=== PATIENT | female | born 1980 | race Caucasian/White ===

== ENCOUNTER → 2017-05-27 | Outpatient (CLI) | payer BC ==
[2017-05-27 17:58] LABS: URINE APPEARANCE CLOUDY (CLEAR); URINE BILIRUBIN NEG (NEG); URINE COLOR YELLOW; URINE NITRITE NEG (NEG); URINE PH 8.5 (4.5-7.5); URINE SPECIFIC GRAVITY 1.017 (1.000-1.030); UROBILINOGEN NEG (NEG)
[2017-05-27 18:00] LABS: MANUAL MICROSCOPIC REQUIRED? NO; REVIEW REQ? NO
== END | disposition home or self-care (01) ==
LOC: C.LABSPEC 16:21
PROVIDERS: ATTEND Obstetrics & Gynecology
DX: O09.811 Supervision of pregnancy resulting from assisted reproductive technology, first trimester (principal); Z3A.00 Weeks of gestation of pregnancy not specified

== ENCOUNTER → 2017-06-03 | Outpatient (CLI) | payer BC ==
[2017-06-03 14:43] LABS: BASO % 0.3 %; BASO ABS # 0.02 K/uL (0-0.2); COMPLETE YES; EOS % 3.3 %; IG% 0.1 %; LYMPH % 15.7 %; LYMPH ABS # 1.05 K/uL (1.2-3.4); MEAN CELL VOLUME 92.7 fL (80-100); MEAN CORPUSCULAR HEMOGLOBIN 31.7 pg (25-34); MEAN CORPUSCULAR HGB CONC 34.2 g/dl (32-36); MEAN PLATELET VOLUME 10.8 fL (7.4-10.4); MONO % 5.5 %; NEUT % 75.1 %; PLATELET COUNT 214 K/uL (130-400); WHITE BLOOD COUNT 6.68 K/uL (4.8-10.8)
[2017-06-06 11:51] LABS: CHLAMYDIA TRACH RNA*** NOT DETECTED (NOT DETECTED); GC (NEIS GONORRHOEAE)RNA** NOT DETECTED (NOT DETECTED)
== END | disposition home or self-care (01) ==
LOC: C.LAB1850 12:33
PROVIDERS: ATTEND Obstetrics & Gynecology
DX: O09.811 Supervision of pregnancy resulting from assisted reproductive technology, first trimester (principal)

== ENCOUNTER → 2017-07-15 | Outpatient (CLI) | payer BC ==
[2017-07-15 13:44] LABS: GTGD 50 Grams
== END | disposition home or self-care (01) ==
LOC: C.LAB1850 11:42
PROVIDERS: ATTEND Obstetrics & Gynecology
DX: O09.511 Supervision of elderly primigravida, first trimester (principal)

== ENCOUNTER → 2017-10-07 | Outpatient (CLI) | payer BC ==
[2017-10-07 17:16] LABS: HEMATOCRIT 34.1 % (37-47)
[2017-10-07 18:06] LABS: URINE APPEARANCE CLEAR (CLEAR); URINE BILIRUBIN NEG (NEG); URINE COLOR YELLOW; URINE NITRITE NEG (NEG); URINE SPECIFIC GRAVITY 1.013 (1.000-1.030); UROBILINOGEN NEG (NEG)
[2017-10-07 18:15] LABS: GTGD 50 Grams
[2017-10-07 18:17] LABS: MANUAL MICROSCOPIC REQUIRED? NO; REVIEW REQ? NO
== END | disposition home or self-care (01) ==
LOC: C.LAB1850 16:09
PROVIDERS: ATTEND Obstetrics & Gynecology
DX: O09.812 Supervision of pregnancy resulting from assisted reproductive technology, second trimester (principal)

== ENCOUNTER → 2017-10-15 | Outpatient (CLI) | payer BC | END | disposition home or self-care (01) | LOC: C.LAB 07:31 | PROVIDERS: ATTEND Obstetrics & Gynecology | DX: O28.1 Abnormal biochemical finding on antenatal screening of mother (principal) ==

== ENCOUNTER → 2017-12-06 | Outpatient (CLI) | payer BC, OTHER | END | disposition home or self-care (01) | LOC: C.LABSPEC 16:00 | PROVIDERS: ATTEND Obstetrics & Gynecology | DX: O09.813 Supervision of pregnancy resulting from assisted reproductive technology, third trimester (principal) ==

== ENCOUNTER 2017-12-26 05:37 | Inpatient (IN) | payer BC ==
--- NOTE | 2017-12-16 14:56 | HISTORY & PHYSICAL EXAMINATION ---
DATE OF ADMISSION: 12/26/2017 Surgery is planned for 12/26/2017. CHIEF COMPLAINT: Desires primary section. HISTORY OF PRESENT ILLNESS: Valerie is a 37-year-old white female 4, para 0-0-3-0, who presents at 39-2/7 weeks for a planned elective delivery. This is a resulting from in vitro fertilization. At her 22-week echo, there was a concern about a VSD and mild right ventricular hypoplasia; however, at a repeat echo 1 month later, there were no obvious abnormalities and a was recommended on the baby post-delivery. The patient's has been uncomplicated other than that, anatomy ultrasound also showed a right choroid plexus cyst. She had a negative panorama screen. She had reactive nonstress test and normal fluid levels seen throughout the late part of . 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 He is a carrier for steroid resistant nephrotic syndrome and 21-hydroxylase deficient congenital adrenal hyperplasia, but she is not. 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 The patient desires a primary section because she would like to avoid any neurologic injury to the baby that might be associated with trauma. She had a long conversation with Dr. Machado regarding this discussing the pros and cons of primary section and an attempt at vaginal delivery. It was explained to the patient that neurological injuries are often events and not associated with " trauma." Nonetheless, the patient desires a primary section. Growth scans have been good throughout. Also of note, the father of the baby is a neurologist. Her sister had a baby with a history of CT as a result of a shoulder dystocia. PAST OBSTETRIC AND GYNECOLOGIC HISTORY: The patient has a history of 3 spontaneous miscarriages, 1 in 2008 and 2 in 2011. This is an IVF baby. She has regular menstrual cycles every 28-30 days and menarche was at age 11. She has no history of abnormal Pap smears, no other significant gynecologic history. The patient has had a polyp removed from her uterus. ALLERGIES: PENICILLINS AND VICODIN. Her penicillin allergy is rash and it is somewhat questionable history of that. Vicodin causes GI upset with significant VOMITING. MEDICATIONS: vitamin. PAST MEDICAL HISTORY: The patient notes a history of retinal migraines and a chickenpox. She denies thyroid disease, asthma, heart disease, heart murmur, diabetes, kidney or liver problems. SOCIAL HISTORY: The patient denies tobacco, alcohol or drug use. She lives with her spouse. PHYSICAL EXAMINATION: GENERAL: This is a well-developed, well-nourished white female in no acute distress. VITAL SIGNS: Blood pressure 100/66, weight 160 pounds. NECK: Supple without thyromegaly or lymphadenopathy. CHEST: Clear to auscultation bilaterally. CARDIOVASCULAR: Regular rate and rhythm without murmurs, gallops or rubs. BACK: Without costovertebral angle tenderness. ABDOMEN: Gravid, soft and nontender. EXTREMITIES: Show some trace edema, but are otherwise benign. LABORATORY DATA: O positive, antibody negative, rubella immune, RPR nonreactive, hepatitis B negative, HIV negative, chlamydia and gonorrhea cultures negative, cystic fibrosis screening declined because she had already had it. A 16-week glucose test normal, 28-week glucose test 141 with a normal 2-hour glucose tolerance test. She is group B strep positive. ASSESSMENT AND PLAN: Valerie is a 37-year-old female, 4, para 0-0-3-0, with an estimated date of confinement of 12/31/2017 who presents at 39 and 2/7 weeks for a primary elective delivery. The is complicated by an in vitro fertilization that has been growing well and has had normal testing. There was a question of some abnormalities on the echo that on followup proved to be not an issue. Delivery was recommended at [facility] with a followup echo. The risks of the procedure were discussed with the patient including the risks of anesthesia, bleeding requiring transfusion, infection and poor wound healing, damage to surrounding structures including bowel, bladder, vessels, nerves and ureters with need for further surgery, hospitalization or intervention. The other risks of surgery including heart attack, blood clot, stroke or were discussed with the patient. Questions were asked and answered. Consent was signed. Surgery is planned for December 26.
--- NOTE | 2017-12-16 15:11 | PAT Medication Instructions ---
Service Date Dec 16, 2017. Current Home Medication List Multivit/Min/Iron/Fol Ac/Pren ( Vitamin), 1 TAB PO QAM Medication Instructions For Your Scheduled Surgery - Hold the following medications the morning of surgery: Multivit/Min/Iron/Fol Ac/Pren ( Vitamin), 1 TAB PO QAM If you have any questions please call us at [phone] or [phone] or [phone]
[2017-12-16 15:41] LABS: BASO % 0.3 %; BASO ABS # 0.02 K/uL (0-0.2); EOS % 0.4 %; EOS ABS # 0.03 K/uL (0-0.5); IG# 0.02 K/uL (0.00-0.02); LYMPH % 15.2 %; LYMPH ABS # 1.15 K/uL (1.2-3.4); MEAN CELL VOLUME 91.6 fL (80-100); MEAN CORPUSCULAR HEMOGLOBIN 31.4 pg (25-34); MEAN CORPUSCULAR HGB CONC 34.3 g/dl (32-36); MONO ABS # 0.53 K/uL (0.11-0.59); NEUT % 76.8 %; NEUT ABS # 5.82 K/uL (1.4-6.5); PLATELET COUNT 174 K/uL (130-400); RED CELL DISTRIBUTION WIDTH CV 12.7 % (11.5-14.5); RED CELL DISTRIBUTION WIDTH SD 42.6 fL (36.4-46.3); WHITE BLOOD COUNT 7.57 K/uL (4.8-10.8)
[~2017-12-26] VITALS: Ht 160 cm; Wt 76.4 kg
[2017-12-26] VITALS (16 sets, daily range): BP systolic 99–107; BP diastolic 56–63; PULSE 56–76; TEMP 36.6–37.1; O2SAT 96–99; Ht 160 cm; Wt 76.4 kg
[~2017-12-26 05:37] MED LIST: LACTATED RINGER'S 1000ML 1,000 ML IV SCH; PRENTAB26 PO
[2017-12-26] MEDS ORDERED: CITRIC ACID/SODIUM CITRATE 15 ML UDC PO SCH (06:00)
[2017-12-26] MEDS ORDERED: CEFAZOLIN IV 2,000 MG in SYRINGE 0 ML IV SCH (06:00)
[2017-12-26] MEDS ORDERED: LACTATED RINGER'S 1000ML 1,000 ML IV SCH ×2 (06:06→08:41)
[2017-12-26] MEDS ORDERED: CITRIC ACID/SODIUM CITRATE 15 ML UDC PO ONE (06:15)
[2017-12-26 07:01] LABS: BASO % 0.3 %; BASO ABS # 0.02 K/uL (0-0.2); EOS ABS # 0.07 K/uL (0-0.5); HEMATOCRIT 33.2 % (37-47); HEMOGLOBIN 11.8 g/dL (12.0-16.0); IG# 0.02 K/uL (0.00-0.02); LYMPH % 20.8 %; LYMPH ABS # 1.53 K/uL (1.2-3.4); MEAN CELL VOLUME 90.7 fL (80-100); MEAN CORPUSCULAR HEMOGLOBIN 32.2 pg (25-34); MEAN CORPUSCULAR HGB CONC 35.5 g/dl (32-36); MEAN PLATELET VOLUME 10.9 fL (7.4-10.4); MONO % 7.6 %; MONO ABS # 0.56 K/uL (0.11-0.59); NEUT ABS # 5.15 K/uL (1.4-6.5); PLATELET COUNT 172 K/uL (130-400); RED CELL DISTRIBUTION WIDTH CV 12.7 % (11.5-14.5); WHITE BLOOD COUNT 7.35 K/uL (4.8-10.8)
--- NOTE | 2017-12-26 07:16 | History & Physical Bridge Note ---
H&P Re-Evaluation Bridge Note: I have examined the patient, reviewed the History & Physical and in the interval since the performance of the History & Physical I have noted the following changes of clinical significance: No changes noted
[2017-12-26] MEDS ORDERED: FENTANYL CITRATE INJ 50 MCG/1 ML 2 ML VIAL ONE (07:32)
[2017-12-26] MEDS ORDERED: OXYTOCIN INJ 10 UNITS/ML VIAL ONE ×2 (07:32→10:26)
[2017-12-26] MEDS ORDERED: MoRPHine SULFATE PF 1 MG/ML 10 ML AMP/VIAL ONE (07:32)
[2017-12-26] MEDS ORDERED: ONDANSETRON INJ 2 MG/ML 2 ML VIAL ONE (07:52)
[2017-12-26] MEDS ORDERED: PHENYLEPHRINE 100MCG/ML 5ML SYR ONE (07:52)
[2017-12-26] MEDS ORDERED: CARBOPROST TROMETHAMINE 250 MCG/ML AMP ONE (08:13)
[2017-12-26] MEDS ORDERED: LACTATED RINGER'S 1000ML 500 ML IV PRN (08:21)
[2017-12-26] MEDS ORDERED: SODIUM CHLORIDE 0.9% 1000ML 1,000 ML IV PRN (08:21)
[2017-12-26] MEDS ORDERED: NALOXONE HCL INJ 1 MG in SODIUM CHLORIDE 0.9% 1000ML 1,000 ML IV PRN (08:21)
[2017-12-26] MEDS ORDERED: NALOXONE HCL INJ 0.08 MG in SYRINGE 1.8 ML IV PRN (08:21)
[2017-12-26] MEDS ORDERED: DEXAMETHASONE SOD INJ 4 MG/ML VIAL ONE (08:23)
[2017-12-26] MEDS ORDERED: EpHEDrine SULFATE INJ 50 MG/ML AMP IV PRN (08:30)
[2017-12-26] MEDS ORDERED: MoRPHine SULFATE 2 MG/ML CARP IV PRN (08:30)
[2017-12-26] MEDS ORDERED: NALBUPHINE HCL INJ 10 MG/ML AMP IV PRN (08:30)
[2017-12-26] MEDS ORDERED: CARBOPROST TROMETHAMINE 250 MCG/ML AMP IM ONE (08:30)
[2017-12-26] MEDS ORDERED: DiphenhydrAMINE HCL 50 MG/ML VIAL IV PRN (08:30)
[2017-12-26] MEDS ORDERED: KETOROLAC TROMETHAMINE 30 MG/ML VIAL IV. PRN (08:30)
[2017-12-26] MEDS ORDERED: NO NARCOTICS OR SEDATIVES SCH (08:30)
[2017-12-26] MEDS ORDERED: NALOXONE HCL 0.4 MG/1 ML VIAL/CARP IV PRN (08:30)
[2017-12-26] MEDS ORDERED: MoRPHine SULFATE PF 1 MG/ML 10 ML AMP/VIAL EPI PRN (08:30)
[2017-12-26] MEDS ORDERED: ONDANSETRON INJ 2 MG/ML 2 ML VIAL IV PRN (08:30)
[2017-12-26] MEDS ORDERED: MEPERIDINE HCL 25 MG/ML CARP IV PRN (08:30)
[2017-12-26] MEDS ORDERED: LANOLIN OINT EXT PRN (08:45)
[2017-12-26] MEDS ORDERED: DIPHTHERIA/TETANUS/PERTUSSIS 0.5 ML SYR/VIAL IM. ONE (08:45)
--- NOTE | 2017-12-26 08:52 | [facility] Post Operative Brief Note ---
Immediate Operative Summary Operative Date Dec 26, 2017. Pre-Operative Diagnosis IUP AT 39 WEEKS; DESIRE FOR PRIMARY CESEARAN SECTION Post-Operative Diagnosis SAME WITH DELIVERY OF LIVE FEMALE CHILD Procedure(s) Performed Primary LOW TRANSVERSE SECTION Surgeon DR TRINIDAD Manager College Surgeon(s) DR WATKINS, Dr. Covington Estimated Blood Loss 700 CC Findings See Below nl utx, tubes, ovs, viable female, apgars 8/9. Fluids (cc crystalloids) 700cc Specimens PLACENTA-HOLD CORD BLOOD Drains None Anesthesia Type Spinal Complication(s) none Disposition Accompanied Pt To Recover: yes Disposition: L&D
[2017-12-26] MEDS ORDERED: OXYTOCIN INJ 20 UNITS in LACTATED RINGER'S 1000ML 1,000 ML IV SCH (09:00)
--- NOTE | 2017-12-26 09:14 | Anesthesiology Progress Note ---
Anesthesia Post Op Note Date & Time Dec 26, 2017 at 09:14 Notes Mental Status: alert / awake / arousable, participated in evaluation Pt Amnestic to Procedure: Yes Nausea / Vomiting: adequately controlled Pain: adequately controlled Airway Patency, RR, SpO2: stable & adequate BP & HR: stable & adequate Hydration State: stable & adequate Neuraxial Anesthesia: was administered, sensory block is resolving Anesthetic Complications: no major complications apparent
--- NOTE | 2017-12-26 09:54 | OPERATIVE REPORT ---
DATE OF OPERATION: 12/26/2017 PREOPERATIVE DIAGNOSES: 1. Intrauterine at 39+ weeks. 2. Desires elective primary section. POSTOPERATIVE DIAGNOSES: Same. PROCEDURE: Primary low transverse section. SURGEON: Dr. Huntley. FIELD ADMINISTRATIVE ASSISTANT: Dr. Sevilla and Dr. Fay Covington, PGY-1. ESTIMATED BLOOD LOSS: 700 mL FLUIDS: 2300 mL URINE OUTPUT: 330 mL of clear yellow urine drained from the bladder at the end of the procedure. INDICATIONS: Valerie is a 4, para 0-0-3-0, with an IVF at 39 weeks, who desires primary elective section. FINDINGS: Normal uterus, tubes and ovaries were noted bilaterally. She was delivered of a viable female from cephalic presentation, Apgars 8 and 9, weight pending at the time of this dictation. COMPLICATIONS: None. DRAINS: Hatch. DISPOSITION: To recovery room in stable condition. PROCEDURE IN DETAIL: The patient was taken to the operating room where she was identified verbally and by bracelet. She was seated on the operating table where spinal anesthetic was placed. She was then placed in dorsal lithotomy position with a leftward tilt and a Hatch catheter was placed sterilely. The patient was then placed in the supine position. She was prepped and draped in normal sterile fashion. Her spinal was tested and found to be adequate. A timeout was held identifying correct patient, procedure, positioning, and preoperative antibiotic. A Pfannenstiel skin incision was made with a knife and taken down to the underlying layer of fascia with the knife and Bovie electrocautery. The fascia was incised in midline with Bovie electrocautery, taken out laterally with scissors. The superior edge of the fascial incision was grasped, elevating the underlying layer, and rectus muscle was taken off bluntly and with scissors. In a similar fashion, the inferior edge of the fascial incision was grasped, elevating underlying layer of fascia, was taken off bluntly and with scissors. The muscles were bluntly and sharply in the midline. The peritoneum was entered bluntly. The bladder blade was placed. The vesicouterine peritoneum was grasped, entered with scissors, taken laterally, and the bladder blade was created digitally. The hysterotomy incision was scored with a knife. It was opened with the bitumen plant operator's hands. Amniotomy was performed for clear fluid. The bitumen plant operator's hand was placed in the hysterotomy incision and had difficulty delivering the head, therefore, a vacuum was called for. We still had difficulty delivering the head, so the hysterotomy incision was opened further using bandage scissors. The vacuum was again applied to head and the head was delivered through the incision. The nose and mouth were bulb suctioned. There was no nuchal cord. The rest of the was then delivered without difficulty. The nose and mouth were again bulb suctioned. The cord was clamped and cut. The was handed off to waiting pediatricians for drying and attention. Cord blood and segment were obtained. Placenta was manually extracted. The uterus was exteriorized and cleared of all clot and debris with moistened laparotomy sponges. The hysterotomy incision was repaired in 2 layers, the first in a running locked layer, the second in an imbricating layer. The posterior cul-de-sac was then irrigated and cleared of all clot and debris. The hysterotomy incision was again inspected and found to be hemostatic. The uterus was re-interiorized. Bleeding edges were attended to with Bovie electrocautery until hemostasis was noted to be intact. The rectus muscles were reapproximated with several interrupted sutures of 0 Vicryl. The fascia was repaired with 0 Vicryl starting at the edges and meeting in the midline. The subcuticular tissue was irrigated with warm normal saline and the skin was then closed with subcuticular stitch of 4-0 Vicryl. All sponge, lap, needle counts were correct x2. The patient tolerated the procedure well and was taken to the recovery room in stable condition. I attest to the content of the Intraoperative Record and any orders documented therein. Any exception s are noted below.
[2017-12-26] MEDS: SIMETHICONE 80 MG CHEW PO SCH ×3 (12:00→20:37)
--- NOTE | 2017-12-26 20:19 | Discharge Instructions ---
Discharge Instructions Date of Service Dec 26, 2017. Admission Reason for Admission: Delivery By Elective Section Discharge Discharge Diagnosis / Problem: S/P Elective Section Discharge Goals Goal(s): Routine recovery after Medications Continue Dispensed Medications: lansinoh Activity Recommendations Activity Limitations: per Instructions/Follow-up section . Instructions / Follow-Up Instructions / Follow-Up ACTIVITY RECOMMENDATIONS: * Gradual return to full activity over the next 2-3 weeks. * No lifting - nothing heavier than baby over the next 2-3 weeks. * Do not engage in vigorous exercise, sexual activity or sports until cleared by your physician. * Do not drive or operate any motorized equipment until cleared by your physician. * You may shower/bathe daily. MEDICATIONS: For discomfort or pain, you may use Acetaminophen (Tylenol), Ibuprofen (Advil), or Naproxen (Aleve) following the package directions. For constipation you may use Colace following the package directions. BREAST CARE: If you are not breast feeding: * Wear a supportive bra 24 hours a day for one to two weeks. * Avoid stimulating your breasts and nipples as much as possible during the first few weeks after delivery. * When taking a shower, have the warm water hit your back, not breasts. * When your breasts feel full, apply ice packs. Usually three to four times a day helps ease the discomfort. * Take a mild pain medication (Tylenol / Motrin) when you are uncomfortable. If breast feeding: * Use breast milk to lubricate nipples. Lansinoh cream may be used for sore nipples. You do not need to remove cream prior to breast feeding. If using a different brand of cream, check the label for directions regarding removal of cream prior to nursing. * Wear a supportive bra. * If having problems with breasts or breast feeding, call a marketing operations consultant or your health care provider. SPECIAL CARE INSTRUCTIONS: When you are discharged from the hospital, it is important for you to follow the instructions listed below: * During the first week at home, you should be able to care for yourself and your baby. In addition, the usual light household activities are encouraged. * Limit your activities to the way you feel. Do not try to clean the house or move furniture. Be sensible. * If you actively engage in sports and have done so up until the time of your delivery, you may resume these activities as soon as you feel able. This may take up to one month or even longer. Use good judgment. * Continue to take your vitamins for at least six weeks after the of your baby. * Your diet need not be limited unless you were on a special diet before your delivery. Breast-feeding mothers need around 2500 calories per day and at least 64-80 ounces of fluid per day (8 to 10 glasses). * You should eat foods from the four major food groups. Crash diets or fad diets are to be avoided. Eating lean meats, fresh fruits and vegetables, low-fat dairy products, high fiber foods and a regular exercise program, will help you get back to your pre- weight without putting your health at risk. * Constipation is sometimes a problem after delivery. Take a mild laxative as needed. If breast feeding, Milk of Magnesia is acceptable to use. You may use a suppository or Fleets enema. * A daily shower or tub bath is suggested. Wash incision daily with warm soapy water and pat dry. It doesn't need to be covered unless drainage is present. * A bloody vaginal discharge will usually continue until around four weeks . A small amount of bleeding may continue for as long as six weeks. Vaginal discharge changes from the bright red bleeding after delivery to pink then brownish and finally yellowish-pink before becoming white and disappearing. * Bleeding may increase with activity. Your first period may come in 4-8 weeks. If you are breast feeding, your period may be delayed even longer. * [place] (sex) can begin whenever both you and your partner feel comfortable and do not have any form of genital infection. It is recommended that you wait at least six weeks for internal and external healing to occur. If you have questions, please talk to your health care practitioner. A condom should be used to prevent infection and . * Foreplay, gentle intercourse and lubrication is very important the first several times to prevent pain. A water-based lubricant such as K-Y jelly or Astroglide may be used. * If you have RH negative blood and your baby is RH positive, you will receive RHOGAM by injection prior to discharge. The nurse will give you a card to keep with you that has the date and place that you received RHOGAM after delivery. * During your care, you had a Rubella screen done to check for the presence of rubella antibodies in your blood. If your test was negative, you will receive a Rubella vaccine prior to discharge. This vaccine may cause a fever, soreness at the injection site and flu-like symptoms. If these symptoms persist, notify your health care practitioner. is not advised for one month after a Rubella vaccine. * Verbalizes understanding of car seat law as reviewed with patient nursing. * Car Seat hand-out given and reviewed with patient by nursing. * Shaken baby information reviewed with patient by nursing. Call you doctor if: * Heavy bleeding (saturating several pads an hour) or passing clots the size of your fist. * A fever >101 degrees F (38.3 degrees C) on two occasions four hours apart and /or chills. * Unusual pain in the pelvic or vaginal areas. * Call the doctor for any increased redness, drainage or swelling around the incision and any pain unrelieved by prescribed pain medication. * "Baby Blues" lasting longer than two weeks. If you have any questions or concerns, call your health care practitioner at . FOLLOW UP VISIT: * Please call the office at to schedule a 6 week examination. It is important you keep this appointment. It is important for you to make arrangements for either yearly or twice yearly check-ups thereafter. Current Hospital Diet Patient's current hospital diet: Clear Liquid Diet Discharge Diet Recommended Diet: Regular OB Diet Procedures Procedures Performed: Primary LOW TRANSVERSE SECTION Pending Studies Studies pending at discharge: no Medical Emergencies . Who to Call and When: Medical Emergencies: If at any time you feel your situation is an emergency, please call [phone] immediately. . Non-Emergent Contact Non-Emergency issues call your: Control Panel Assembler . . "Provider Documentation" section prepared by Fay Covington. .
[2017-12-26] MEDS: DOCUSATE SODIUM 100 MG CAP PO SCH (20:37)
[2017-12-27] VITALS: O2SAT 97
[2017-12-27 01:00] VITALS: O2SAT 96
[2017-12-27] MEDS ORDERED: DiphenhydrAMINE HCL 50 MG/ML VIAL IV PRN (02:00)
[2017-12-27] MEDS ORDERED: DC INTRASPINAL MORPHINE SCH (02:00)
[2017-12-27] MEDS ORDERED: OXYCODONE/ACETAMINOPHEN 5-325 TAB PO PRN ×2 (02:00)
[2017-12-27] MEDS ORDERED: KETOROLAC TROMETHAMINE 30 MG/ML VIAL IV. PRN (02:00)
[2017-12-27] MEDS ORDERED: MEPERIDINE HCL 50 MG/ML CARP IV PRN ×2 (02:00)
[2017-12-27 04:35] VITALS: BP 94/51; PULSE 71; TEMP 37; O2SAT 96
[2017-12-27 07:28] LABS: BASO % 0.2 %; BASO ABS # 0.02 K/uL (0-0.2); EOS % 0.1 %; EOS ABS # 0.01 K/uL (0-0.5); HEMATOCRIT 26.8 % (37-47); HEMOGLOBIN 9.2 g/dL (12.0-16.0); IG# 0.03 K/uL (0.00-0.02); LYMPH % 16.2 %; LYMPH ABS # 1.55 K/uL (1.2-3.4); MEAN CELL VOLUME 91.5 fL (80-100); MEAN CORPUSCULAR HEMOGLOBIN 31.4 pg (25-34); MEAN CORPUSCULAR HGB CONC 34.3 g/dl (32-36); MEAN PLATELET VOLUME 10.7 fL (7.4-10.4); MONO % 6.1 %; MONO ABS # 0.58 K/uL (0.11-0.59); NEUT % 77.1 %; NEUT ABS # 7.37 K/uL (1.4-6.5); PLATELET COUNT 138 K/uL (130-400); RED CELL DISTRIBUTION WIDTH CV 12.7 % (11.5-14.5); RED CELL DISTRIBUTION WIDTH SD 42.4 fL (36.4-46.3); WHITE BLOOD COUNT 9.56 K/uL (4.8-10.8)
--- NOTE | 2017-12-27 08:08 | Progress Note ---
Subjective Dec 27, 2017. Subjective conversation w/ patient, physical exam, chart review, lab review Ambulation: ambulating normally Voiding: voiding difficulty (Has not yet voided without leslie) Passing Gas: Yes Diet Tolerance: Clear Liquids (advancing to solids this AM) Feeding Type: Breast Feeding Pain: Pt reports dependent pressure pain at incision site, but none at rest Comment: pt seen and examined at bedside today, no acute events overnight reported Review of Systems Constitutional: No fever, No chills, No sweats, No weight loss, No weakness, No fatigue, No problem reported Respiratory: No cough, No sputum, No wheezing, No shortness of breath, No dyspnea on exertion, No dyspnea at rest, No hemoptysis, No problem reported Cardiac: No chest pain, No orthopnea, No PND, No edema, No claudication, No palpitations, No problem reported Breast: No breast lump, No change in shape, No nipple discharge, No breast pain , No problem reported Abdomen: No pain, No nausea, No vomiting, No diarrhea, No constipation, No GI bleeding, No problem reported Female : No dysuria, No urinary frequency, No hematuria, No incontinence, No abnormal vaginal bleeding, No vaginal discharge, No problem reported Denies headache, calf pain Objective Vital Signs Date Time Temp Pulse Resp B/P (MAP) Pulse Ox O2 Delivery O2 Flow Rate FiO2 12/27/17 04:35 37.0 71 16 94/51 (65) 96 Room Air 12/27/17 01:00 16 96 12/27/17 00:00 16 97 12/26/17 23:35 97 Room Air 12/26/17 23:35 36.8 76 16 99/56 (70) 97 Room Air 12/26/17 23:00 16 97 12/26/17 22:00 16 96 12/26/17 21:00 16 98 12/26/17 20:30 37.1 73 16 106/57 (73) 97 Room Air 12/26/17 20:00 16 97 12/26/17 19:00 16 97 12/26/17 18:00 18 98 12/26/17 17:00 18 97 12/26/17 16:05 Room Air 12/26/17 16:05 Room Air 12/26/17 16:00 18 98 12/26/17 15:12 36.7 72 18 107/63 (78) Room Air 12/26/17 15:00 18 99 12/26/17 14:00 18 98 12/26/17 13:00 18 98 12/26/17 12:00 18 98 12/26/17 11:00 18 99 12/26/17 11:00 36.6 56 18 101/56 (71) 99 Room Air 12/26/17 11:00 99 Room Air 12/26/17 11:00 99 Room Air Physical Exam General Appearance: WELL-APPEARING, WD/WN, NO APPARENT DISTRESS Respiratory/Chest: chest non-tender, lungs clear, normal breath sounds, no respiratory distress Cardiovascular: regular rate, rhythm, no edema, no gallop, no murmur Abdomen: normal bowel sounds, non tender, soft Fundus: Firm, Non-Tender, Relation to Umbilicus (1 cm below umbilicus) Incision Description: Clean, Dry & Intact Extremities: normal range of motion, non-tender, normal inspection, no pedal edema, no calf tenderness Laboratory Results Last 24 Hours Test 12/27/17 06:56 White Blood Count 9.56 K/uL Red Blood Count 2.93 M/uL Hemoglobin 9.2 g/dL Hematocrit 26.8 % Mean Corpuscular Volume 91.5 fL Mean Corpuscular Hemoglobin 31.4 pg Mean Corpuscular Hemoglobin Concent 34.3 g/dl Platelet Count 138 K/uL Mean Platelet Volume 10.7 fL Neutrophils (%) (Auto) 77.1 % Lymphocytes (%) (Auto) 16.2 % Monocytes (%) (Auto) 6.1 % Eosinophils (%) (Auto) 0.1 % Basophils (%) (Auto) 0.2 % Neutrophils # (Auto) 7.37 K/uL Lymphocytes # (Auto) 1.55 K/uL Monocytes # (Auto) 0.58 K/uL Eosinophils # (Auto) 0.01 K/uL Basophils # (Auto) 0.02 K/uL RDW Standard Deviation 42.4 fL RDW Coefficient of Variation 12.7 % Immature Granulocyte % (Auto) 0.3 % Immature Granulocyte # (Auto) 0.03 K/uL Medications Current Inpatient Medications Medications (Trade) Dose Ordered Sig/Alyssa Route Start Time Stop Time Status Last Admin Dose Admin Lactated Ringer's 1,000 ml @ 125 mls/hr Q8H IV 12/26/17 08:41 01/25/18 08:40 12/26/17 17:20 125 MLS/HR Ketorolac Tromethamine (Toradol Inj) 30 mg Q6H PRN IV. 12/27/17 02:00 01/01/18 01:59 12/27/17 02:26 30 MG Meperidine HCl (Demerol Inj) 50 mg Q4H PRN IV 12/27/17 02:00 01/10/18 01:59 Meperidine HCl (Demerol Inj) 75 mg Q4H PRN IV 12/27/17 02:00 01/10/18 01:59 Ibuprofen (Motrin Tab) 600 mg Q4H PRN PO 12/26/17 08:45 01/25/18 08:44 Prenat Multivit/ [place]/Iron/Folic Ac ( Vitamin Tab) 1 tab DAILY PO 12/27/17 08:00 01/26/18 07:59 Docusate Sodium (coLACE CAP) 100 mg BID PO 12/26/17 20:00 01/25/18 19:59 12/26/17 20:37 100 MG Lanolin (Lanolin Oint) PRN PRN EXT 12/26/17 08:45 01/25/18 08:44 Simethicone (Mylicon Chew Tab) 80 mg QID PO 12/26/17 09:00 01/25/18 08:59 12/26/17 20:37 80 MG Diphenhydramine HCl (Benadryl Cap) 25 mg QID PRN PO 12/27/17 02:00 01/26/18 01:59 Diphenhydramine HCl (Benadryl Inj) 25 mg QID PRN IV 12/27/17 02:00 01/26/18 01:59 Tramadol HCl (Ultram Tab) 50 mg Q4H PRN PO 12/27/17 07:45 01/26/18 07:44 Assessment and Plan Post-Op Day#: 1 Continue Routine Care: S/P elective CS day 1 AFVSS Hb reviewed blood type O pos, GBS pos, rubella immune pt doing well clinically Encourage ambulation, monitor and control pain with tramadol as requested over percocet, resume regular diet Encourage breast feeding Resident Physician Supervision Note: I interviewed and examined the patient. Discussed with Dr. Covington and agree with findings and plan as documented in the note. Any exceptions or clarifications are listed here: Doing well. routine care. Patient has a sensitivity of n/v to vicodin. She really does not want to take Percocet. Her , an MD, asks if we can prescribe tramadol and we will. encourage ambulation, void. Documented By: Tamiko Huntley Resident Tracking Resident Involvement: Resident Care Provided Care Provided: OB Delivery
[2017-12-27 08:25] VITALS: BP 106/69; PULSE 79; TEMP 36.9; O2SAT 97
[2017-12-27] MEDS: PRENATAL VITAMIN TAB PO SCH (08:29)
[2017-12-27] MEDS: SIMETHICONE 80 MG CHEW PO SCH ×4 (08:29→19:46)
[2017-12-27] MEDS: TRAMADOL HCL 50 MG TAB PO PRN ×4 (08:29→21:14)
[2017-12-27] MEDS: DOCUSATE SODIUM 100 MG CAP PO SCH ×2 (08:29→19:46)
[2017-12-27] MEDS: IBUPROFEN 600 MG TAB PO PRN ×3 (12:36→21:14)
[2017-12-27 15:30] VITALS: BP 105/66; PULSE 74; TEMP 36.7; O2SAT 96
[2017-12-28 00:45] VITALS: BP 100/57; PULSE 74; PULSE 78; TEMP 36.7
[2017-12-28 06:31] LABS: HEMOGLOBIN 9.3 g/dL (12.0-16.0)
--- NOTE | 2017-12-28 07:21 | Progress Note ---
Subjective Dec 28, 2017. Subjective conversation w/ patient, conversation w/ family, physical exam, chart review, lab review Ambulation: ambulating normally Voiding: no voiding problems Passing Gas: Yes (no BM yet) Diet Tolerance: Regular Diet Lochia: Small Feeding Type: Breast Feeding Pain: minimal Comment: pt seen and assessed at bedside; no acute events overnight Review of Systems Constitutional: No fever, No chills, No sweats, No weight loss, No weakness, No fatigue, No problem reported Respiratory: No cough, No sputum, No wheezing, No shortness of breath, No dyspnea on exertion, No dyspnea at rest, No hemoptysis, No problem reported Cardiac: No chest pain, No orthopnea, No PND, No edema, No claudication, No palpitations, No problem reported Breast: No breast lump, No change in shape, No nipple discharge, No breast pain , No problem reported Abdomen: No pain, No nausea, No vomiting, No diarrhea, No constipation, No GI bleeding, No problem reported Female : No dysuria, No urinary frequency, No hematuria, No incontinence, No abnormal vaginal bleeding, No vaginal discharge, No problem reported no headaches or calf pain reported Objective Vital Signs Date Time Temp Pulse Resp B/P (MAP) Pulse Ox O2 Delivery O2 Flow Rate FiO2 12/28/17 00:45 Room Air 12/28/17 00:45 36.7 74 18 100/57 (71) Room Air 12/28/17 00:45 36.7 78 18 100/57 (71) Room Air 12/27/17 15:30 36.7 74 18 105/66 (79) 96 Room Air 12/27/17 15:30 Room Air 12/27/17 08:25 36.9 79 18 106/69 (81) 97 Room Air 12/27/17 08:25 Room Air Physical Exam General Appearance: WELL-APPEARING, WD/WN, NO APPARENT DISTRESS Respiratory/Chest: chest non-tender, lungs clear, normal breath sounds, no respiratory distress, no accessory muscle use Cardiovascular: regular rate, rhythm, no edema, no murmur Abdomen: normal bowel sounds, non tender, soft Fundus: Firm, Non-Tender, Relation to Umbilicus (2 cm below) Incision Description: Clean, Dry & Intact Extremities: normal range of motion, non-tender, normal inspection, no pedal edema, no calf tenderness Laboratory Results Last 24 Hours Test 3/7/18 06:13 Hemoglobin 9.3 g/dL Hematocrit 27.0 % Medications Current Inpatient Medications Medications (Trade) Dose Ordered Sig/Alyssa Route Start Time Stop Time Status Last Admin Dose Admin Lactated Ringer's 1,000 ml @ 125 mls/hr Q8H IV 12/26/17 08:41 01/25/18 08:40 12/26/17 17:20 125 MLS/HR Ketorolac Tromethamine (Toradol Inj) 30 mg Q6H PRN IV. 12/27/17 02:00 01/01/18 01:59 12/27/17 02:26 30 MG Meperidine HCl (Demerol Inj) 50 mg Q4H PRN IV 12/27/17 02:00 01/10/18 01:59 Meperidine HCl (Demerol Inj) 75 mg Q4H PRN IV 12/27/17 02:00 01/10/18 01:59 Ibuprofen (Motrin Tab) 600 mg Q4H PRN PO 12/26/17 08:45 01/25/18 08:44 12/27/17 21:14 600 MG Prenat Multivit/ Frostproof/Iron/Folic Ac ( Vitamin Tab) 1 tab DAILY PO 12/27/17 08:00 01/26/18 07:59 12/27/17 08:29 1 TAB Docusate Sodium (coLACE CAP) 100 mg BID PO 12/26/17 20:00 01/25/18 19:59 12/27/17 19:46 100 MG Lanolin (Lanolin Oint) PRN PRN EXT 12/26/17 08:45 01/25/18 08:44 Simethicone (Mylicon Chew Tab) 80 mg QID PO 12/26/17 09:00 01/25/18 08:59 12/27/17 19:46 80 MG Diphenhydramine HCl (Benadryl Cap) 25 mg QID PRN PO 12/27/17 02:00 01/26/18 01:59 Diphenhydramine HCl (Benadryl Inj) 25 mg QID PRN IV 12/27/17 02:00 01/26/18 01:59 Tramadol HCl (Ultram Tab) 50 mg Q4H PRN PO 12/27/17 07:45 01/26/18 07:44 12/27/17 21:14 50 MG Assessment and Plan Post-Op Day#: 2 Continue Routine Care: 37yo F POD 2 s/p elective section blood type O pos, GBS +/carrier, rubella immune Hgb reviewed 9.2--9.3 AFVSS pt clinically doing well Continue routine care, encourage ambulation, breast feeding Pain control with Rx prn Resident Physician Supervision Note: I interviewed and examined the patient. Discussed with Dr. Covington and agree with findings and plan as documented in the note. Any exceptions or clarifications are listed here: Patient desires d/c, instructions/Rx given, f/u in 6 weeks for pp check Documented By: Alan Machado Resident Tracking Resident Involvement: Resident Care Provided Care Provided: OB Delivery
[2017-12-28 08:00] VITALS: BP 99/63; PULSE 67; TEMP 36.7
[2017-12-28] MEDS ORDERED: MTR600X PO (08:04)
[2017-12-28] MEDS ORDERED: ULT50X PO (08:04)
[2017-12-28] MEDS: DOCUSATE SODIUM 100 MG CAP PO SCH (08:33)
[2017-12-28] MEDS: SIMETHICONE 80 MG CHEW PO SCH ×3 (08:34→16:33)
[2017-12-28] MEDS: PRENATAL VITAMIN TAB PO SCH (08:36)
[2017-12-28] MEDS: IBUPROFEN 600 MG TAB PO PRN ×3 (08:39→16:34)
[2017-12-28] MEDS: TRAMADOL HCL 50 MG TAB PO PRN ×3 (08:40→16:34)
[2017-12-28 16:30] VITALS: BP 122/79; PULSE 87; TEMP 36.3; O2SAT 98
[2017-12-28 17:25] VITALS: BP_DIAS 79; PULSE 87; TEMP 36.3
== END 2017-12-28 17:25 | disposition home or self-care (01) | DRG 766 ==
LOC: C.LD 05:37 → EDSTATUS 07:30 → C.OBG 11:02
PROVIDERS: ADMIT Obstetrics & Gynecology; ATTEND Obstetrics & Gynecology
PROC: 10D00Z1 Extraction of Products of Conception, Low, Open Approach (ICD-10-PCS; principal; 2017-12-26 07:30)
DX: O82 Encounter for cesarean delivery without indication (principal); O09.813 Supervision of pregnancy resulting from assisted reproductive technology, third trimester; O28.8 Other abnormal findings on antenatal screening of mother; O09.293 Supervision of pregnancy with other poor reproductive or obstetric history, third trimester; Z22.330 Carrier of Group B streptococcus; Z14.8 Genetic carrier of other disease; Z3A.39 39 weeks gestation of pregnancy; Z37.0 Single live birth; Z88.0 Allergy status to penicillin; Z88.5 Allergy status to narcotic agent

== ENCOUNTER → 2018-02-06 | Outpatient (CLI) | payer BC ==
[~2018-02-06] MED LIST changes: -LACTATED RINGER'S 1000ML 1,000 ML IV SCH; +MTR600X PO; +ULT50X PO
== END | disposition home or self-care (01) ==
LOC: C.PAPS 09:23
PROVIDERS: ATTEND Obstetrics & Gynecology
DX: Z01.419 Encounter for gynecological examination (general) (routine) without abnormal findings (principal)